=== PATIENT | female | born 1950 | race Caucasian/White ===

== ENCOUNTER → 2018-09-14 | Outpatient (CLI) | payer BC ==
[~2018-09-14] MED LIST: ASPIRIN ADULT L81 M1 PO; BETA CAROTEN25000 IU PO; ENALAPRIL2.5 MG PO; MULTI VITAMINS1 TAB PO; NEXIUM20 MG PO; VITAMIN B COMP1 EAC1 PO; VITAMIN C PO; VITAMIN E PO; ZITHROMAX Z PA250 MG PO
== END | disposition home or self-care (01) ==
LOC: MAMMO 09-08 11:00 → RAD 09-08 13:00 → MAMMO 10:24
DX: Z12.31 Encounter for screening mammogram for malignant neoplasm of breast (principal); M81.0 Age-related osteoporosis without current pathological fracture; Z78.0 Asymptomatic menopausal state

== ENCOUNTER 2018-11-27 17:03 | Emergency (ER) | payer BC, MEDICARE ==
[~2018-11-27] VITALS: Ht 160 cm; Wt 90.7 kg
--- NOTE | ~2018-11-27 | EKG ---
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
--- NOTE | ~2018-11-27 | EKG ---
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
--- NOTE | ~2018-11-27 | EKG ---
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
[2018-11-27 17:08] VITALS: BP 156/96
[2018-11-27 17:51] LABS: HEMATOCRIT 42.5 % (37.0-47.0); HEMOGLOBIN 13.7 g/dl (12.0-16.0); MEAN CELL VOLUME 88.9 fl (81.0-99.0); MEAN CORPUSCULAR HGB 28.7 pg (27.0-31.0); MEAN CORPUSCULAR HGB CONC 32.2 g/dl (33.0-37.0); MEAN PLATELET VOLUME 9.9 fl (9.6-12.3); PLATELET COUNT AUTOMATED 294 10*3/uL (130-400); RED BLOOD COUNT 4.78 10*6/uL (4.10-5.10); RED CELL DISTRI WIDTH 13.4 % (0-14.5); WHITE BLOOD COUNT 20.5 10*3/uL (4.8-10.8)
[2018-11-27 18:02] LABS: ACT PARTIAL THROMBO TIME 29.2 SECONDS (20.0-32.1)
[2018-11-27 18:15] LABS: PLATELET SUFFICIENCY NORMAL (NORMAL); TOTAL CELLS COUNTED 100 #CELLS
[2018-11-27 18:16] LABS: ALBUMIN 3.3 gm/dl (3.1-4.5); ALKALINE PHOSPHATASE 107 U/L (45-117); BUN 11 mg/dl (7-24); CHLORIDE 102 mmol/L (98-107); CREATININE 0.75 mg/dL (0.55-1.02); POTASSIUM 3.7 mmol/L (3.5-5.1); SGOT/AST 22 IU/L (3-35); SGPT/ALT 26 U/L (12-78); SODIUM 137 mmol/L (136-145); TOTAL PROTEIN 7.8 gm/dL (6.4-8.2)
[2018-11-27 18:30] VITALS: BP 154/94
[2018-11-27 19:21] LABS: BILIRUBIN NEGATIVE (NEGATIVE); BLOOD 1+ (NEGATIVE); CLARITY CLEAR (CLEAR); COLOR YELLOW (YELLOW); GLUCOSE NEGATIVE (NEGATIVE); KETONE 1+ (NEGATIVE); LEUKO ESTERASE NEGATIVE (NEGATIVE); NITRITE NEGATIVE (NEGATIVE); SPECIFIC GRAVITY <= 1.005 (1.005-1.030)
[2018-11-27 19:58] VITALS: BP 162/112
[2018-11-27 20:00] VITALS: BP 154/92
--- NOTE | 2018-11-27 20:58 | NUR ---
CRITICAL LAB TROP 0.542. [place] AND AND DR YANEZ NOTIFIED OF THIS RESULT.
[2018-11-27 21:30] VITALS: BP 154/92
[2018-11-27 23:25] VITALS: BP 144/95
[2018-11-28 00:34] VITALS: BP 146/80
--- NOTE | 2018-11-28 00:48 | NUR ---
PATIENT HAS LEFT THE FLOOR AT THIS TIME. [facility] TAKING PATIENT TO [facility].
--- NOTE | 2018-11-28 00:48 | NUR ---
PATIENT REPORT GIVEN TO FRANCK SEGOVIA AT [facility].
== END 2018-11-28 01:05 | disposition short-term general hospital (02) ==
LOC: ED 17:03 → EDHOLD 22:28 → ED 11-28 01:05
PROVIDERS: Emergency Medicine
DX: I26.99 Other pulmonary embolism without acute cor pulmonale (principal); E66.9 Obesity, unspecified; Z98.51 Tubal ligation status; Z90.710 Acquired absence of both cervix and uterus; Z98.890 Other specified postprocedural states; Z79.899 Other long term (current) drug therapy; Z79.82 Long term (current) use of aspirin; Z88.8 Allergy status to other drugs, medicaments and biological substances

== ENCOUNTER → 2018-12-16 | Outpatient (CLI) | payer BC | END | disposition home or self-care (01) | LOC: RAD 07:28 | DX: K63.9 Disease of intestine, unspecified (principal); I26.99 Other pulmonary embolism without acute cor pulmonale; R06.02 Shortness of breath ==